=== PATIENT | female | born 2000 | race Caucasian/White ===

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

== ENCOUNTER 2022-06-24 12:44 | Outpatient (CLI) | payer MEDICAID, SELFPAY ==
--- NOTE | ~2022-06-24 | US_ITS ---
EXAMINATION: US OB <= 14 weeks fetus DATE: 06/24/2022 13:29 INDICATION: Encounter for supervision of normal during first trimester TECHNIQUE: Real-time pelvic ultrasound utilizing both a transvaginal and transabdominal probe was pe rformed. The interpreting radiologist was not present for the study. COMPARISON: None. FINDINGS: The uterus measures 12.5 x 5.5 x 6.4 cm. There is an intrauterine gestational sac. A yolk sac and fe yeny pole are identified. The crown rump length measures 2.7 cm, which correlates with an estimated ge stational age of 9 weeks and 4 days. heart motion is identified measuring 169 beats per minute (bpm) by M-mode Doppler. The right ovary measures 3.4 x 2.3 x 2.1 cm. The left ovary measures 2.8 x 2.1 x 2.3 cm. There is no free fluid in the pelvis. IMPRESSION: 1. Single living fetus with heart rate of 169 bpm. 2. Gestational age by ultrasound of 9 weeks 4 day(s) +/- 6 day(s) with ultrasound estimated date of delivery (DMITRI) of 01/23/2023. Reviewed, dictated and finalized at location A. RING SERVER IMPRESSION: 1. Single living fetus with heart rate of 169 bpm. 2. Gestational age by ultrasound of 9 weeks 4 day(s) +/- 6 day(s) with ultraso und estimated date of delivery (DMITRI) of 01/23/2023.
== END 2022-06-24 12:45 | disposition home or self-care (01) ==
PROVIDERS: PCP Nurse Practitioner Family; Visit Provider Registered Nurse
DX: Z34.91 Encounter for supervision of normal pregnancy, unspecified, first trimester (principal); Z3A.09 9 weeks gestation of pregnancy
CPT/HCPCS: 76801

== ENCOUNTER 2023-01-07 14:10 | Inpatient (IN) | payer OTHER, SELFPAY ==
[2023-01-07] VITALS (110 sets, daily range): BP systolic 107–168; BP diastolic 58–118; PULSE 70–145; RESP 16; TEMP 36.3; O2SAT 95–100; BMI 23.6
[2023-01-07 14:52] LABS: Basophils Percent Auto 0.2 % (0.2-1.2); Eosinophils Absolute Auto 0.1 K/mm3 (0-0.3); Eosinophils Percent Auto 0.7 % (0-4.4); Hematocrit 29.3 % (37.0-47.0); Hemoglobin 9.5 g/dL (12.0-15.0); Immature Granulocyte Absolute 0.07 K/mm3 (0.00-0.031); Immature Granulocyte Percent A 0.7 % (0-0.5); Lymphocytes Absolute Auto 1.55 K/mm3 (0.9-3.2); Lymphocytes Percent Auto 15.2 % (18.3-44.2); Mean Corpuscular HGB Conc 32.4 g/dl (32-36); Mean Corpuscular Hemoglobin 29.2 pg (26-34); Mean Corpuscular Volume 90.2 fl (80-100); Mean Platelet Volume 10.4 fl (7.4-10.4); Monocytes Absolute Auto 0.4 K/mm3 (0.1-0.6); Monocytes Percent Auto 3.4 % (2.6-8.5); Neutrophils Absolute Auto 8.2 K/mm3 (1.3-6.7); Neutrophils Percent Auto 79.8 % (45.5-73.1); Platelet Count Result 226 k/mm3 (150-375); Red Blood Count 3.25 M/mm3 (4.2-5.4); Red Cell Distribution Width 14.4 % (11.5-14.5); White Blood Count 10.2 K/mm3 (4.5-10.0)
[2023-01-07 15:02] LABS: Alanine Aminotransferase 21 U/L (6-35); Albumin Level 3.3 g/dL (3.5-5.1); Alkaline Phosphatase 184 U/L (38-126); Anion Gap 6 mmol/L (8-16); Aspartate Amino Transferase 48 U/L (14-36); Bilirubin,Total 0.4 mg/dL (0.2-1.3); Blood Urea Nitrogen 7 mg/dL (7-17); Calcium 8.2 mg/dL (8.4-10.2); Carbon Dioxide 21 mmol/L (22-30); Chloride 108 mmol/L (98-107); Estimated Glomerular Filt Rate > 60; Glucose 78 mg/dL (65-110); Potassium 3.8 mmol/L (3.4-5.0); Sodium 135 mmol/L (137-145)
[2023-01-07 15:13] LABS: Creatinine Urine 86.6 mg/dL; Total Protein Urine Random 139 mg/dL; Ur Ttl Prot Creatinine Ratio 1.61 mg/mg (0-0.20)
--- NOTE | 2023-01-07 15:23 | LDADM ---
This patient, Lara Valverde, was admitted to Labor/Delivery/Recovery 106 on 01/07/23 at 14:10. Plans for labor, pain management and were discussed with patient. Patient/family oriented to hospital policies and general routines including ID bracelet, bed and alarms, visiting hours, pain management, procedures, bathroom and other care routines, personal items, smoking policy, room service/diet and guest tray routines, security routines, and visiting hours. Patient/Family are encouraged to report perceived risks to care and to ask questions if they do not understand what they are told or what they should do. See OBIX for further documentation.
[2023-01-07] MEDS: DINOPROSTONE 10 MG VAG INSERT VAGINAL (15:44)
[2023-01-07 16:12] LABS: HIV 1/2 Ab P24 Ag Result Negative (Negative)
[2023-01-07] MEDS: LACTATED RINGERS 1,000 ML 125 ML IV CONT (17:30)
[2023-01-07] MEDS: ONDANSETRON INJ 4 MG/2 ML VIAL IV PUSH (17:53)
[2023-01-07] MEDS: fentaNYL CITRATE INJ (*CRX) 100 MCG/2 ML VIAL 50 MCG IV PUSH (17:55)
--- NOTE | 2023-01-07 19:14 | WPDANESEPN ---
Anes - Epidural Procedure Note Date/Time: 01/07/23 19:14 Consent: I have discussed with the patient/family/POA, the placement of an epidural catheter and the use of epidural narcotic/local anesthetic for labor analgesia and/or postoperative pain management, including associated potential risks, benefits, complications and side effects. I have discussed alternative methods of labor analgesia and/or postoperative pain management. The patient/family/POA, understand(s) and wish(es) to proceed with epidural narcotic/local anesthetic for labor analgesia and/or postoperative pain management. Time-Out: A pre-procedural Time-Out was completed immediately before starting the procedure and confirmed: Patient Identification, Site, Procedure, Patient Position and the Availability of Requisite Equipment. Clinical Indications: Labor pain Epidural Insertion Note Patient position: sitting Skin prep: chlorhexidine and sterile drape Needle: 18g Tuohy-Schliff Catheter: 20g Unstyleted Technique: Loss of resistance. Level of insertion: L3/4 Catheter skin mayur (cm): 8 Length in epidural space (cm): 3 Skin anesthesia: lidocaine 1% Test dose: 1.5% Lidocaine with 1:[id number] Epi, negative for subarachnoid Inj and negative for intravascular Inj Time of test dose: 19:03 Observations: tolerated well Complications: none
--- NOTE | 2023-01-07 19:16 | WPDANESEPPF ---
Anes - Initial Pre Proc Eval Procedure: Labor Epidural Date/Time: 01/07/23 1850 Surgeon: Jose Maria Fleming MD Pre Op Diagnosis: Labor pain Pre Op Diagnosis: IOL Patient Data Age: 22 Gender: F Height: 1.63 m Weight: 62.27 kg Last Vital Signs Pulse 85 01/07/23 19:15 BP 157/91 H 01/07/23 19:15 Pulse Ox 100 01/07/23 19:12 Allergies Allergy/AdvReac Type Severity Reaction Status Date / Time No Known Allergies Allergy Verified 01/07/23 13:31 Home Medications Medication Instructions Recorded Confirmed Type prenat.vits,lópez,[id number] 1 tablet PO DAILY 06/17/22 01/07/23 History ferrous sulfate 325 mg (65 mg 325 mg PO BID 11/18/22 01/07/23 History iron) tablet sertraline 100 mg tablet 100 mg PO DAILY 01/07/23 01/07/23 History Laboratory Tests 01/07/23 14:43 WBC 10.2 H K/mm3 (4.5-10.0) RBC 3.25 L M/mm3 (4.2-5.4) Hgb 9.5 L g/dL (12.0-15.0) Hct 29.3 L % (37.0-47.0) MCV 90.2 fl (80-100) MCH 29.2 pg (26-34) MCHC 32.4 g/dl (32-36) RDW 14.4 % (11.5-14.5) Plt Count 226 k/mm3 (150-375) MPV 10.4 fl (7.4-10.4) Immature Gran % (Auto) 0.7 H % (0-0.5) Neut % (Auto) 79.8 H % (45.5-73.1) Lymph % (Auto) 15.2 L % (18.3-44.2) [place] % (Auto) 3.4 % (2.6-8.5) Eos % (Auto) 0.7 % (0-4.4) Baso % (Auto) 0.2 % (0.2-1.2) Lymph # (Auto) 1.55 K/mm3 (0.9-3.2) [place] # (Auto) 0.4 K/mm3 (0.1-0.6) Eos # (Auto) 0.1 K/mm3 (0-0.3) Baso # (Auto) 0.0 K/mm3 (0.0-0.1) Abs Immat Gran (auto) 0.07 H K/mm3 (0.00-0.031) Absolute Neuts (auto) 8.2 H K/mm3 (1.3-6.7) Absolute Nucleated RBC 0.0 K/mm3 (0.0-0.012) Nucleated RBC % 0.0 % (0.0-0.2) Sodium 135 L mmol/L (137-145) Potassium 3.8 mmol/L (3.4-5.0) Chloride 108 H mmol/L (98-107) Carbon Dioxide 21 L mmol/L (22-30) Anion Gap 6 L mmol/L (8-16) BUN 7 mg/dL (7-17) Creatinine 0.70 mg/dL (0.7-1.0) Estim Creat Clear Calc Not Reportable Estimated GFR > 60 (59 - ) Glucose 78 mg/dL (65-110) Calcium 8.2 L mg/dL (8.4-10.2) Total Bilirubin 0.4 mg/dL (0.2-1.3) AST 48 H U/L (14-36) ALT 21 U/L (6-35) Alkaline Phosphatase 184 H U/L (38-126) Total Protein 6.0 L g/dL (6.3-8.2) Albumin 3.3 L g/dL (3.5-5.1) U Random Total Protein 139 mg/dL Urine Creatinine 86.6 mg/dL Protein/Creat Ratio 2 1.61 H mg/mg (0-0.20) RPR Pending HIV 1&2 Ab/P24 Ag 4thGn Negative (Negative) Blood Type A Positive Antibody Screen Negative Patient hx anesthesia problems: none Family hx anesthesia problems: none Results Review: All pre-operative results and documents have been reviewed as part of the pre-operative evaluation. [facility] Past Medical History Medical History Anxiety Depression Septate hymen Surgical History Surgical History History of tonsillectomy Family History Family History Sibling Asthma Father Diabetes mellitus Social History Social History Years smoked: 3 Smoking status: Former smoker Tobacco type: cigarettes and e-cigarettes/vaping Second hand tobacco smoke exposure: Yes Alcohol intake: never Substance use: never Substance use type: does not use Lack of Transportation: No Lack of Food: Never True Current Housing: I Have Housing Concerned About Future Housing: No Difficulty Paying Gas/Electric Bills: No Difficulty Paying for Meds: No Currently Unemployed: No Education: High School Diploma/GED Difficulty w/ Childcare or Family Care: No Living arrangements: with family Occupation/Education: occupation Gender identity (if verbalized by the p
--- NOTE | 2023-01-07 19:44 | PM.IMHP ---
H&P: HPI History of Present Illness Date/Time: 01/07/23 19:44 Chief Complaint: Increased blood pressures Narrative: She is a 22 y/o G1 at 37 6/7 weeks presented for OB visit and had second elevated blood pressure in office. She denies headache, scotomata or RUQ pain. She also c/o feeling a lump in her breast yesterday which has since resolved. She has had galactorrhea. No lump palpated on exam. Urine dip also with 2+ protein. This was her second elevated blood pressure. PNC significant for history of tobacco which she stopped. Labs reviewed. GBS negative. Her PIH labs showed high P/C ratio and elevated AST. She was admitted for pre-eclampsia. Review of Systems Review of Systems: All systems reviewed & are unremarkable except as noted in HPI and below Constitutional: Constitutional: Reports no additional constitutional complaints and Denies headache(s) Eyes: Eyes: Denies spots in vision ENT: Reports system reviewed and no additional complaints, except as documented and Denies headache(s) Cardiovascular: Cardiovascular: Denies chest pain and Denies dyspnea Respiratory: Respiratory: Denies dyspnea Gastrointestinal: Gastrointestinal: Reports no additional gastrointestinal complaints Genitourinary: Genitourinary: Reports amenorrhea Musculoskeletal: Musculoskeletal: Reports no additional musculoskeletal complaints Integumentary/Breasts: Skin/Breast: Denies breast mass and Denies rash Neurologic: Denies headache(s) Psychiatric: Psychiatric: Reports no additional psychiatric complaints [facility] Past Medical History Medical History Anxiety Depression Septate hymen Surgical History Surgical History History of tonsillectomy Family History Family History Sibling Asthma Father Diabetes mellitus Social History Social History Years smoked: 3 Smoking status: Former smoker Tobacco type: cigarettes and e-cigarettes/vaping Second hand tobacco smoke exposure: Yes Alcohol intake: never Substance use: never Substance use type: does not use Lack of Transportation: No Lack of Food: Never True Current Housing: I Have Housing Concerned About Future Housing: No Difficulty Paying Gas/Electric Bills: No Difficulty Paying for Meds: No Currently Unemployed: No Education: High School Diploma/GED Difficulty w/ Childcare or Family Care: No Living arrangements: with family Occupation/Education: occupation Gender identity (if verbalized by the patient): Female Sexual Orientation (if Verbalized by the Patient): Straight or Heterosexual Spiritual care concerns: No Meds Home Medications and Allergies Home Medications Medication Instructions Recorded Confirmed Type prenat.vits,lópez,vjj-hffo-nlswp 1 tablet PO DAILY 06/17/22 01/07/23 History ferrous sulfate 325 mg (65 mg 325 mg PO BID 11/18/22 01/07/23 History iron) tablet sertraline 100 mg tablet 100 mg PO DAILY 01/07/23 01/07/23 History Allergies Allergy/AdvReac Type Severity Reaction Status Date / Time No Known Allergies Allergy Verified 01/07/23 13:31 Vital Signs Vital Signs - 24 hr 01/07/23 15:36 01/07/23 16:00 01/07/23 16:15 Pulse Rate 70 74 70 Blood Pressure 149/105 H 143/95 H 138/90 Pulse Oximetry 01/07/23 16:30 01/07/23 16:44 01/07/23 17:00 Pulse Rate 70 79 73 Blood Pressure 142/91 H 160/95 H 156/98 H Pulse Oximetry 01/07/23 17:15 01/07/23 17:30 01/07/23 18:00 Pulse Rate 114 H 72 90 Blood Pressure 151/106 H 142/94 H 149/93 H Pulse Oximetry 01/07/23 18:52 01/07/23 18:57 01/07/23 19:01 Pulse Rate 89 92 Blood Pressure 163/99 H 157/101 H Pulse Oximetry 100 01/07/23 19:02 01/07/23 19:05 01/07/23 19:06 Pulse Rate 84 86 Blood Pressure 150/101 H 140/87
[2023-01-07] MEDS: MAGNESIUM SULF 4 GM/WATER100ML 4 GM/100 ML BAG IVPB (20:17)
[2023-01-07] MEDS: MAGNESIUM SULF 20GM/WATER500ML 500 ML 50 MG IV CONT (20:49)
--- NOTE | 2023-01-07 22:29 | PM.OBPRVD ---
OB - Delivery Note Procedure Delivery date: 01/07/23 Procedure: Spontaneous vaginal delivery Events: Other (Pre-eclampsia) Induction method: Per Cervidil Protocol Delivery monitor: External FHT Route of delivery: Episiotomy description: Left Mediolateral Delivery repair: vicryl (3.0 vicryl) Specimen: Yes (Placenta and cord) Quantitative Blood Loss (ml): 300 Anesthesia type: Epidural Disposition: Floor Narrative: She was admitted for cervidil induction for pre-eclampsia without severe features. She progressed to active labor with cervidil. During labor her blood pressures were labile and had isolated in severe range. She had spontaneous rupture of membranes, mild blood tinged. Magnesium was started and she dilated to complete. At the start of pushing she was having vaginal bleeding. It did improve as the baby descended. tracing with pushing Cat 2. An episiotomy was performed, left mediolateral due to episode of increase bleeding. The 's head was delivered and nose and mouth suctioned at perineum. The anterior shoulder was delivered with gentle traction and the rest of the baby was delivered. Infant placed on maternal abdomen. Cord doubly clamped and cut. Placenta delivered spontaneously and intact with gentle traction. The lower uterine segment was cleared of clot and small trailing membranes. The episiotomy was repaired with 3.0 vicryl. Fundus firm. Baby Date of : 01/07/23 Time of : 22:05 Weeks of gestation at delivery: 37 Infant gender: Male Weight (pounds): 5 Weight (ounces): 15 presentation: vertex position: Left Occiput Anterior Placenta delivery description: Spontaneous and Expressed Cord Vessel Description: 3 Vessels and Clamped/Cut [facility] Delivery Billing Delivery Delivery: Delivery Charge
[2023-01-08] VITALS (9 sets, daily range): BP systolic 128–153; BP diastolic 87–109; PULSE 69–90; RESP 16–18; TEMP 36.3–37.2; O2SAT 100
[2023-01-08 00:01] LABS: Uric Acid 6.1 mg/dL (2.5-7.5)
--- NOTE | 2023-01-08 00:36 | PC.NURSE ---
Patient transferred to post room #292 per wheelchair from labor and delivery. Support person present. Oriented to unit, room, information board, rooming in, admission packet and security measures. Patient verbalizes understanding.
[2023-01-08 05:17] LABS: Hematocrit 27.8 % (37.0-47.0); Hemoglobin 8.8 g/dL (12.0-15.0)
[2023-01-08] MEDS: IBUPROFEN 600 MG TABLET PO (07:34)
[2023-01-08] MEDS: MAGNESIUM SULF 20GM/WATER500ML 500 ML 50 MG IV CONT ×2 (07:36→16:44)
--- NOTE | 2023-01-08 08:22 | WPDANLDPN2 ---
Anes-Prog Note L&D Date/Time: 01/08/23 08:22 Comfortable throughout: labor and delivery Neuraxial method: epidural Epidural/Spinal procedure site: clean & non-tender Neuro status: Neuro function grossly intact. Cardiovascular status: normal Respiratory status: normal Airway patency: baseline Mental status: baseline Post-Op hydration status: normal Vital Signs: Last Vital Signs Temp 36.3 C L 01/08/23 05:00 Pulse 80 01/08/23 05:00 Resp 16 01/08/23 05:00 BP 128/87 01/08/23 05:00 Pulse Ox 100 01/07/23 23:37 O2 Del Method Room Air 01/08/23 01:35 Pain score (VAS): 2/10 I/O: Intake & Output 01/07/23 01/08/23 01/08/23 23:59 07:59 15:59 Intake Total 1450 Output Total 2800 Balance -1350 Post-procedural complaints: none Patient feedback: Patient satisfied with anesthetic care.
--- NOTE | 2023-01-08 09:16 | P.PNOB_ITS ---
OB - PN: Subj Subjective Date/time seen: 01/08/23 09:16 Interval history: She denies headache, scotomata or RUQ pain. Patient comments: pain well controlled, tolerating diet and other (Decreasing lochia.) baby status: doing well and nursing well OB - PN: Obj Data Labs 01/08/23 05:04 01/07/23 14:43 Labs: Laboratory Results - last 24 hr 01/07/23 01/08/23 14:43 05:04 WBC 10.2 H RBC 3.25 L Hgb 9.5 L 8.8 L Hct 29.3 L 27.8 L MCV 90.2 MCH 29.2 MCHC 32.4 RDW 14.4 Plt Count 226 MPV 10.4 Immature Gran % (Auto) 0.7 H Neut % (Auto) 79.8 H Lymph % (Auto) 15.2 L [place] % (Auto) 3.4 Eos % (Auto) 0.7 Baso % (Auto) 0.2 Lymph # (Auto) 1.55 [place] # (Auto) 0.4 Eos # (Auto) 0.1 Baso # (Auto) 0.0 Abs Immat Gran (auto) 0.07 H Absolute Neuts (auto) 8.2 H Absolute Nucleated RBC 0.0 Nucleated RBC % 0.0 Sodium 135 L Potassium 3.8 Chloride 108 H Carbon Dioxide 21 L Anion Gap 6 L BUN 7 Creatinine 0.70 Estim Creat Clear Calc Not Reportable Estimated GFR > 60 Glucose 78 Uric Acid 6.1 Calcium 8.2 L Total Bilirubin 0.4 AST 48 H ALT 21 Alkaline Phosphatase 184 H Total Protein 6.0 L Albumin 3.3 L U Random Total Protein 139 Urine Creatinine 86.6 Protein/Creat Ratio 2 1.61 H HIV 1&2 Ab/P24 Ag 4thGn Negative Blood Type A Positive Antibody Screen Negative OB - PN A/P Assessment and Plan (1) Vaginal delivery: Code(s): O80 - Encounter for full-term uncomplicated delivery Status: Acute Assessment and Plan: Doing well. Routine post delivery care. (2) Pre-eclampsia: Code(s): O14.90 - Unspecified pre-eclampsia, unspecified trimester Status: Acute Assessment and Plan: Labile bp, no severe symptoms. Continue Magnesium for 24 hours. Continue to monitor blood pressures. Blood pressures elevated this morning, if persist elevated, will add antihypertensive. Plan day: 1 Plan: routine care Comments: Patient doing well. Time Spent With Patient Time: Total time spent is greater than 50% in coordination of care (as documented) at patient's floor/unit and/or counseling patient: Exam Const: General: comfortable Psych: Affect: normal affect Other: Abd: fundus firm below umbilicus, nontender Perineum: healing Ext: nontender DTR 1+ clonus
[2023-01-08] MEDS: TETANUS,DIPHTHERIA,AC PERTUSSIS ADULT (0.5 ML) BOOSTRIX IM (10:06)
[2023-01-08] MEDS: POLYSACCHARIDE IRON COMPLEX 150 MG CAPSULE PO ×2 (10:06→16:44)
[2023-01-08] MEDS: DOCUSATE SODIUM 100 MG CAPSULE PO ×2 (10:06→16:44)
[2023-01-08 11:25] LABS: Rapid Plasma Reagin Non-Reactive (NonReactive)
[2023-01-08] MEDS: LACTATED RINGERS 1,000 ML 75 ML IV CONT (14:09)
[2023-01-08] MEDS: LABETALOL HCL 100 MG TABLET 200 MG PO (17:19)
[2023-01-09 00:45] VITALS: BP 136/87; PULSE 64
[2023-01-09 05:20] VITALS: BP 123/85; PULSE 82
--- NOTE | 2023-01-09 06:58 | P.PNOB_ITS ---
OB - PN: Subj Subjective Date/time seen: 01/09/23 06:58 Interval history: She denies headache, scotomata or RUQ pain. No lightheadedness or dizziness. Patient comments: pain well controlled, tolerating diet and other (Decreasing lochia.) [place] baby status: doing well and nursing well OB - PN: Obj Data Labs 01/08/23 05:04 01/07/23 14:43 Labs: Laboratory Results - last 24 hr 01/07/23 14:43 RPR Non-reactive OB - PN A/P Assessment and Plan (1) Vaginal delivery: Code(s): O80 - Encounter for full-term uncomplicated delivery Status: Acute Assessment and Plan: She is doing well. Adequate pain control. Blood pressures good. Anticipate discharge later today. (2) Pre-eclampsia: Code(s): O14.90 - Unspecified pre-eclampsia, unspecified trimester Status: Acute Assessment and Plan: Blood pressures normal with blood pressure medications. No signs or symptoms of severe pre-e. Plan day: 1 Plan: routine care Comments: Patient doing well. Time Spent With Patient Time: Total time spent is greater than 50% in coordination of care (as documented) at patient's floor/unit and/or counseling patient: Exam Const: General: comfortable GI: Inspection: normal to inspection Neuro: General: oriented to person, oriented to place and oriented to time Extrem: General: normal to inspection Psych: Affect: normal affect Other: Abd: fundus firm below umbilicus, nontender Ext: nontender
--- NOTE | 2023-01-09 07:05 | PM.OBDSVD ---
DS: Admitting Diagnosis Discharge Date 01/09/23 Admitting Diagnosis Pre-eclampsia. DS: Discharge Diagnosis Discharge Diagnosis (1) Pre-eclampsia: Code(s): O14.90 - Unspecified pre-eclampsia, unspecified trimester Status: Acute (2) Vaginal delivery: Code(s): O80 - Encounter for full-term uncomplicated delivery Status: Acute OB - DS: Summary Hospital Course Hospital Course: She was admitted to Labor and delivery with the diagnosis of preeclampsia and to initiate medical induction of labor with Cervidil. She progressed to active labor on Cervidil. She had an uncomplicated vaginal delivery. She did well . She did have elevated blood pressures and was started on antihypertensive medications. She did not have any severe headache scotomata or right upper quadrant pain. Her blood pressures did improve on the labetalol. She was discharged home on day OB Procedures : Ultrasound OB Procedures Intrapartum: Spontaneous Vag Delivery OB Procedures: : None Peripartum Data Infant Delivery Method: Natural Vaginal complications: none Status at Discharge Functional status at discharge: independent ambulation Time Spent with Patient Time attestation: Total time spent providing and/or coordinating discharge services: Exam Const: General: cooperative Orientation/consciousness: oriented to person, oriented to place and oriented to time HENMT: Face/Nose/Sinus: Normal external nose present Eyes: General: appearance normal, both eyes and all related structures Resp: Effort & Inspection: normal respiratory effort GI: Inspection: normal to inspection Skin: General skin exam: normal color Neuro: General: oriented to person, oriented to place and oriented to time Extrem: General: normal to inspection and no calf tenderness Psych: Appearance: grossly normal Mental Status: mental status grossly normal DS: Data Data Completed and Pending Pending studies at discharge: Pending at discharge 01/08/23 08:07 Surgical [PTH] Routine Labs on day of discharge: Labs from last 24 hours 01/07/23 14:43 RPR Non-reactive Discharge Plan Discharge Attending physician on discharge: Jose Maria Fleming Consulting providers: Clemente Murry; Chaz Barrios Discharging Clinician: Jose Maria Fleming Patient Disposition: Home, Self-Care Activity: may shower and pelvic rest Diet: regular Discharge Instructions: Education: Mom and Baby Guide Given to: Mother Follow-Up: Call your delivering provider's office for an appointment to be seen in: 1 Week Mom and baby should come to the [facility] for the follow-up appointment. Appointment Date/Time: January 11, 2023 at 10:00 am What to expect at your follow-up visit: Physical Assessment Call [phone] if you are unable to keep your appointment time. BREAST CARE: * Wear a snug supportive bra. * For engorgement discomfort: Bottle Feeding: * May apply ice packs PERINEAL CARE: * Until bleeding stops, use your elbert bottle after urinating * Change your pad frequently throughout the day * You may take sitz baths several times a day (fill your bathtub with warm water and soak for 20 minutes.) Do NOT bathe in the water * No tub baths until seen by your physician - You may shower ACTIVITY: * Rest as much as possible. * Do not exercise or lift anything heavier than your baby (such as laundry or other children.) * Avoid stairs or driving as much as possible. * Do not put anything into the vagina. No douching, tampons, or sexual activity until seen by physician. NOTIFY PHYSICIAN IF YOU HAVE ANY QUESTIONS OR IF ANY OF THE FOLLOWING SYMPTOMS OCCUR: * If your perineum becomes red, swollen, or more painful than what you have experienced in the hospital. * If your vaginal bleeding becomes foul smelling. * If your vaginal bleeding becomes more heavy than a period
[2023-01-09 08:30] VITALS: BP 136/94; PULSE 79; RESP 18; TEMP 36.9
[2023-01-09 10:23] VITALS: PULSE 80
[2023-01-09] MEDS: DOCUSATE SODIUM 100 MG CAPSULE PO (10:23)
[2023-01-09] MEDS: LABETALOL HCL 100 MG TABLET 200 MG PO (10:23)
[2023-01-09] MEDS: POLYSACCHARIDE IRON COMPLEX 150 MG CAPSULE PO (10:23)
[2023-01-11 09:45] VITALS: BP 142/81; PULSE 92; RESP 20; TEMP 36.9; O2SAT 98
== END 2023-01-09 12:30 | disposition home or self-care (01) | DRG 560 ==
LOC: ANHLDR 14:12 → ANHOB2 01-08 00:40
PROVIDERS: Admitting Provider Obstetrics & Gynecology; PCP Nurse Practitioner Family; Visit Provider Obstetrics & Gynecology
DX: O14.94 Unspecified pre-eclampsia, complicating childbirth (principal); Z37.0 Single live birth; O62.3 Precipitate labor; O60.23X0 Term delivery with preterm labor, third trimester, not applicable or unspecified; O99.344 Other mental disorders complicating childbirth; F41.8 Other specified anxiety disorders; Z3A.37 37 weeks gestation of pregnancy; Z87.891 Personal history of nicotine dependence
CPT/HCPCS: 36415; 80053; 82570; 84156; 84550; 85014; 85018; 85025; 86592; 86703; 86850; 86900; 86901; 88307; 90715; A9270; G0432; J2405; J2795; J3010; J3475; J7120